=== PATIENT | male | born 1995 | race African-American/Black ===

== ENCOUNTER 2021-03-28 14:22 | Emergency (ER) | payer SELFPAY ==
[2021-03-28 16:20] VITALS: BP 144/99; PULSE 125; RESP 18; TEMP 37.4; O2SAT 99; BMI 27.9
--- NOTE | 2021-03-28 16:45 | HMH.EDUTC ---
[facility] [place] Disposition Clinical Impression: Exposure to COVID-19 virus Disposition: Home, Self-Care Condition on Discharge: Good Instructions: DI for COVID-19 (Suspected or Confirmed ), Preventing the Spread of Coronavirus Discharge Instructions Additional Instructions: *Monitor Temp, Over the counter Motrin or Tylenol as directed/as needed Tylenol every 4 hours and Motrin every 6 hours (as long as your family doctor has told you that you can take it) for fever or pain. and straight to ER if unable to lower temp less than 101.0 after medication given *Warm salt water gargles may help to soothe the throat *Throat Lozenges *Warm fluids like tea with honey may help to soothe the throat *Sleep elevated *Humidifier/Vaporizer Follow up IMMEDIATELY for new or worsening symptoms or no Noticeable improvement over the next 48-72 hours. 911 for difficulty breathing or swallowing You were tested for today for COVID19 your test result should be back in the next 24-48 hours, You was given written instructions for [facility] portal you can see your results there when they come back you may check it often to see if they are done You was given a handout with instructions for Self Quarantine and Self isolation for while you wait on test results and what to do if they are positive If you are positive the Health Dept will be contacting you also Make sure to take your Vitamins Vit. C Vit D and Zinc if you can take them Referrals: Provider,Referral, [Primary Care Provider] - As needed Forms: Work/School Release Time of Disposition: 16:52 Medical Decision Making - Franco Inquiry Pt receiving controlled substance: No Franco was queried for this patient: No Vital Signs: 03/28/21 16:20 Temperature 99.3 F Temperature Source Oral Pulse Rate [Right Brachial] 125 H Respiratory Rate 18 Blood Pressure [Right Arm] 144/99 H Blood Pressure Mean [Right Arm] 114 Blood Pressure Source [Right Arm] Automatic Cuff Blood Pressure Position [Right Arm] Sitting 02 Sat by Pulse Oximetry 99 Oxygen Delivery Method Room Air Medical Decision Narrative: Discussed with patient and recommended strep test also and patient declined states that he just wanted tested for COVID [facility] [place] HPI - General Stated complaint: Covid test / fever, loss of smell Time Seen by Provider: 03/28/21 16:45 Mode of Arrival: Ambulatory Source of Information: Patient Limitations: No Limitations Description of Symptoms (Recalled from Triage Doc. by RN): PATIENT C/O FEVER, SORE THROAT, VOMITING, CHILLS, AND LOSS OF TASTE/SMELL THAT STARTED 2 DAYS AGO. RECENTLY EXPOSED TO COVID HEENT Symptoms (Recalled from RN notes): Yes Resp Symptoms (Recalled from RN notes): No Skin Symptoms (Recalled from RN notes): No MS Symptoms (Recalled from RN notes): No Functional Status (Recalled from RN notes): WNL - History of Present Illness Provider Complaint: Patient states that he was recently exposed to someone in the family with COVID States that for the last couple of days he has been having fever, chill, body aches and loss of taste and smell States that his throat has been a little scratchy at times when he coughs and wanted to get tested for COVID - Related Data Allergies Allergy/AdvReac Type Severity Reaction Status Date / Time No Known Allergies Allergy Verified 03/28/21 16:42 - Worker's Comp Is this a Worker's Comp case?: No [facility] History - Hepatitis A Screen Drug use history?: No High risk sexual behaviors?: No History of sexually transmitted infection?: No Currently employed?: No Childcare worker?: No Do you have indoor plumbing?: Yes Do you have electricity?: Yes Attestation statement:: This patient has been screened for Hepatitis A risk factors. I have reviewed the patient's past medical history: Yes ROS Obtained: Yes All systems reviewed & no additional complaints, Yes Systems reviewed as appropriate & no additional complaints - Constitutional Constitutional: Repor
[2021-03-28 16:57] VITALS: BP 144/99; PULSE 125; RESP 18; TEMP 37.4; O2SAT 99
--- NOTE | 2021-03-29 20:33 | PC.NURSE ---
PATIENT NOTIFIED OF POSITIVE COVID TEST
== END 2021-03-28 16:58 | disposition home or self-care (01) ==
PROVIDERS: Emergency Provider Nurse Practitioner
DX: R51.9 Headache, unspecified (principal); Z20.822 Contact with and (suspected) exposure to COVID-19; R43.9 Unspecified disturbances of smell and taste
CPT/HCPCS: 99202; G0463; U0003

== ENCOUNTER 2021-06-07 19:13 | Emergency (ER) | payer SELFPAY ==
[2021-06-07 20:10] VITALS: BP 141/90; PULSE 86; RESP 19; TEMP 37.1; O2SAT 98; BMI 26.7
--- NOTE | 2021-06-07 20:46 | HMH.EDUTC ---
[facility] [place] Clinical Impression: Screening for STD (sexually transmitted disease) Disposition: Home, Self-Care Condition on Discharge: Good Instructions: Facts About Sexually Transmitted Infections, How to Detect and Treat STDs, Chlamydia: The Silent STD Additional Instructions: Avoid sexual activity until your test results are back and they are negative Follow up with your Family Doctor for further treatment and evaluation Return if needed Straight to ER if any life threatening symptoms Referrals: Provider,Referral, MD [Primary Care Provider] - As needed Time of Disposition: 21:02 Medical Decision Making - Franco Inquiry Pt receiving controlled substance: No Franco was queried for this patient: No Vital Signs: 06/07/21 20:10 Temperature 98.7 F Temperature Source Oral Pulse Rate [Right Brachial] 86 Respiratory Rate 19 Blood Pressure [Right Arm] 141/90 H Blood Pressure Mean [Right Arm] 107 Blood Pressure Source [Right Arm] Automatic Cuff Blood Pressure Position [Right Arm] Sitting 02 Sat by Pulse Oximetry 98 Oxygen Delivery Method Room Air [facility] [place] H[place] - General Stated complaint: Test for STD Time Seen by Provider: 06/07/21 20:47 Mode of Arrival: Ambulatory Source of Information: Patient Limitations: No Limitations Description of Symptoms (Recalled from Triage Doc. by RN): PATIENT C/O SORES TO GENITAL AREA THAT HE NOTICED TODAY. REQUESTING STD TEST HEENT Symptoms (Recalled from RN notes): No Resp Symptoms (Recalled from RN notes): No Skin Symptoms (Recalled from RN notes): No MS Symptoms (Recalled from RN notes): No Functional Status (Recalled from RN notes): WNL - History of Present Illness Provider Complaint: Patient states that he wanted to get tested for STD States that he noticed a small sore like lesion on the head of his penis when he woke up this mornign and was worried that he may have an STD so he came wanting to get tested Denies any previous breakouts - Related Data Allergies Allergy/AdvReac Type Severity Reaction Status Date / Time No Known Allergies Allergy Verified 03/28/21 16:42 - Worker's Comp Is this a Worker's Comp case?: No [facility] History - Hepatitis A Screen Drug use history?: No High risk sexual behaviors?: No History of sexually transmitted infection?: No Currently employed?: No Childcare worker?: No Do you have indoor plumbing?: Yes Do you have electricity?: Yes Attestation statement:: This patient has been screened for Hepatitis A risk factors. I have reviewed the patient's past medical history: Yes ROS Obtained: Yes All systems reviewed & no additional complaints, Yes Systems reviewed as appropriate & no additional complaints - Constitutional Constitutional: Reports system reviewed and no additional complaints, except as docu, Denies body ache, Denies chills, Denies fever(s) - ENT Ears, Nose, Mouth, and Throat: Reports system reviewed and no additional complaints, except as docu - Cardiovascular Cardiovascular: Reports system reviewed and no additional complaints, except as docu - Respiratory Respiratory: Reports system reviewed and no additional complaints, except as docu - Gastrointestinal Gastrointestingal: Reports: system reviewed and no additional complaints, except as docu - Genitourinary Male Genitourinary: Reports system reviewed and no additional complaints, except as docu, Denies erectile dysfunction, Reports genital lesions, Denies genital pain, Denies decreased urination, Denies painful ejaculations, Denies penile discharge, Denies scrotal swelling, Denies urinary frequency, Reports other (small sore like lesion nonpainful on head of penis since this morning) Physical Exam - General General appearance: alert, in no apparent distress - Respiratory Respiratory exam: Present: normal lung sounds bilaterally. Absent: respiratory distress - Cardiovascular Cardiovascular exam: Present: regular rate, normal rhythm. Absent: JVD - A
[2021-06-07 21:04] VITALS: BP 141/90; PULSE 86; RESP 19; TEMP 37.1; O2SAT 98
[2021-06-10 01:07] LABS: Neisseria gonorrhoeae, NAA Negative (Negative)
== END 2021-06-07 21:12 | disposition home or self-care (01) ==
PROVIDERS: Emergency Provider Nurse Practitioner
DX: Z11.3 Encounter for screening for infections with a predominantly sexual mode of transmission (principal)
CPT/HCPCS: 87252; 87491; 87591; 99203; G0463

== ENCOUNTER 2021-09-17 21:22 | Emergency (ER) | payer SELFPAY ==
[2021-09-17 21:24] VITALS: BP 165/107; PULSE 87; RESP 16; TEMP 37.1; O2SAT 100; BMI 25.4
[2021-09-17 21:46] VITALS: PULSE 77; RESP 16; O2SAT 100
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
--- NOTE | 2021-09-17 23:01 | PC.NURSE ---
pt states that he is upto date on all vaccinations
[2021-09-17 23:11] VITALS: BP 155/106; PULSE 78; RESP 16; TEMP 37.1; O2SAT 99
== END 2021-09-17 23:24 | disposition home or self-care (01) ==
PROVIDERS: Emergency Provider Emergency Medicine; PCP Family Medicine
DX: S06.0X0A Concussion without loss of consciousness, initial encounter (principal); S00.511A Abrasion of lip, initial encounter; V49.3XXA Car occupant (driver) (passenger) injured in unspecified nontraffic accident, initial encounter; Y92.488 Other paved roadways as the place of occurrence of the external cause
CPT/HCPCS: 70450; 72125; 99282; 99284